=== PATIENT | female | born 1985 | race Caucasian/White ===

== ENCOUNTER 2017-06-24 16:00 | Emergency (ER) | payer MEDICAID ==
[~2017-06-24] VITALS: Ht 157.5 cm; Wt 60.0 kg
[2017-06-24] MEDS ORDERED: IBUP-2028 (16:07)
[2017-06-24] MEDS ORDERED: ONDA4TAB50 (16:07)
[2017-06-24] MEDS ORDERED: HYDR-4001 (16:07)
[2017-06-24] MEDS ORDERED: FLU60SYR (16:07)
[2017-06-24] MEDS ORDERED: SODIUM CHLORIDE 0.9% 1,000 ML IV ONE (18:26)
[2017-06-24] MEDS ORDERED: LORAZEPAM 2MG/ML CPJ IV ONE (18:30)
[2017-06-24 19:09] LABS: BASOPHILS % 0.4 % (0.0-2.0); EOSINOPHILS % 7.9 % (0.0-5.0); HEMATOCRIT. 34.8 % (36.0-48.0); HEMOGLOBIN. 11.9 g/dL (12.0-16.0); LYMPHOCYTES % 37.4 % (20.0-50.0); MEAN CORPUSCULAR HEMOGLOBIN 30.1 pg (28.0-32.0); MEAN CORPUSCULAR VOLUME 87.8 fL (81.0-99.0); MEAN PLATELET VOLUME 6.7 fl (7.4-10.4); MONOCYTES % 11.7 % (2.0-8.0); NEUTROPHILS % 42.6 % (40.0-76.0); PLATELET 253 x1000/uL (130-400); RED BLOOD CELL COUNT 3.97 mill/uL (4.2-5.4); RED CELL DISTRIBUTION WIDTH 12.4 % (11.6-14.6)
[2017-06-24 19:17] LABS: CHLORIDE 106 mEq/L (98-107)
[2017-06-24 19:19] LABS: HCG SCREEN NEGATIVE
[2017-06-24 19:21] LABS: CARBON DIOXIDE 28 mEq/L (21-32); ETHANOL BLOOD < 10 mg/dL
[2017-06-24 19:54] LABS: CLARITY URINE CLOUDY (CLEAR); COLOR URINE DARK YELLOW (YELLOW); GLUCOSE URINE NEGATIVE (NEGATIVE); KETONES URINE NEGATIVE (NEGATIVE); LEUKOCYTE ESTERASE URINE NEGATIVE (NEGATIVE); NITRITE URINE NEGATIVE (NEGATIVE); OCCULT BLOOD URINE NEGATIVE (NEGATIVE); PH URINE 5.5 (4.5-8.0); PROTEIN URINE NEGATIVE (NEGATIVE); SPECIFIC GRAVITY URINE 1.032 (1.005-1.030)
[2017-06-24 20:07] LABS: *BARBITURATES SCREEN URINE NEGATIVE (NEGATIVE); *BENZODIAZEPINES SCREEN URINE NEGATIVE (NEGATIVE); *COCAINE SCREEN URINE NEGATIVE (NEGATIVE); CANNABINOID URINE SCREEN NEGATIVE (NEGATIVE); METHADONE URINE SCREEN NEGATIVE (NEGATIVE); OPIATES URINE SCREEN NEGATIVE (NEGATIVE); PHENCYCLIDINE URINE SCREEN NEGATIVE (NEGATIVE)
[2017-06-24 20:09] LABS: *AMPHETAMINES SCREEN URINE PRESUMTIVE POSITIVE (NEGATIVE)
[2017-06-25 10:50] VITALS: BP 103/64
== END 2017-06-25 12:08 | disposition home or self-care (01) ==
LOC: ER 16:51
DX: R45.851 Suicidal ideations (principal); F41.9 Anxiety disorder, unspecified; F32.89 Other specified depressive episodes
CPT/HCPCS: 36415; 80048; 80305; 80307; 80329; 81001; 84703; 85025; 96361; 96374; 99284; G0482; J2060; Z7610; J7030

== ENCOUNTER 2018-09-13 16:42 | Emergency (ER) | payer MEDICAID ==
[~2018-09-13] VITALS: Ht 154.9 cm; Wt 60.0 kg
[~2018-09-13 16:42] MED LIST: FLU60SYR; HYDR-4001; IBUP-2028; ONDA4TAB50
[2018-09-13 16:58] VITALS: BP 112/50
== END 2018-09-13 18:10 | disposition home or self-care (01) ==
LOC: ER 16:42
DX: J06.9 Acute upper respiratory infection, unspecified (principal)
CPT/HCPCS: 99282

== ENCOUNTER 2022-05-15 15:01 | Emergency (ER) | payer MEDICAID ==
[~2022-05-15] VITALS: Ht 165.1 cm; Wt 68.0 kg
[2022-05-15 15:03] VITALS: BP 125/80
[2022-05-15] MEDS ORDERED: KETOROLAC 30MG/ML VIAL IV NR (15:54)
[2022-05-15] MEDS ORDERED: NAPR-681 PO (18:15)
== END 2022-05-15 18:41 | disposition home or self-care (01) ==
LOC: ER 15:01
DX: S20.219A Contusion of unspecified front wall of thorax, initial encounter (principal); S13.4XXA Sprain of ligaments of cervical spine, initial encounter; Z98.890 Other specified postprocedural states; T76.11XA Adult physical abuse, suspected, initial encounter; Y93.89 Activity, other specified; Y92.89 Other specified places as the place of occurrence of the external cause; Y99.8 Other external cause status
CPT/HCPCS: 70486; 71045; 81025; 96374; 99284; J1885